=== PATIENT | female | born 1930 | race Caucasian/White ===

== ENCOUNTER → 2017-03-14 | Outpatient (CLI) | payer MEDICARE, OTHER ==
--- NOTE | 2017-03-14 15:55 | RADRPT ---
PROCEDURE: Right knee radiographs. CLINICAL INDICATION: Right knee pain. TECHNIQUE: Four views. Weight bearing. Frontal, lateral, oblique, and patellar view. COMPARISON: No prior studies are available for comparison. FINDINGS: There is no fracture or dislocation. There is chondrocalcinosis. There are degenerative changes with osteophytes arising from all 3 joint compartment margins. There is medial and lateral joint compartment narrowing. There is lateral joint compartment subarticular sclerosis, and mild deformity. There is no lytic or blastic lesion. There is no radiopaque foreign body. IMPRESSION: 1. Chondrocalcinosis. 2. Moderate to severe degenerative change. 3. Otherwise normal images of the right knee. RPTAT: QQ .Trae Morejon MD, MD Date Time Electronically viewed and signed by .Trae Morejon MD, on 03/14/2017 15:55 .R/
== END | disposition home or self-care (01) ==
LOC: HKI 15:23
PROVIDERS: ATTEND Orthopaedic Surgery
DX: M25.561 Pain in right knee (principal); M17.11 Unilateral primary osteoarthritis, right knee; Z96.652 Presence of left artificial knee joint
CPT/HCPCS: 73564; G0463